=== PATIENT | female | born 1970 | race Caucasian/White ===

== ENCOUNTER 2017-03-16 18:10 | Emergency (ER) | payer MEDICAID ==
--- NOTE | 2017-03-16 18:50 | CPEKG ---
Heart Rate: 94 RR Interval: 638 P-R Interval: 156 QRSD Interval: 106 QT Interval: 372 QTC Interval: 466 P Advance: -87 QRS Advance: 55 T Wave Advance: 72 EKG Severity - ABNORMAL ECG - EKG Impression: ECTOPIC ATRIAL RHYTHM EKG Impression: INCOMPLETE RIGHT BUNDLE BRANCH BLOCK Electronically Signed By: Guido Blair 16-Mar-2017 20:22:30
--- NOTE | 2017-03-16 18:51 | EDPHY ---
H & P Stated Complaint: Deep,raspy cough~9 days;Sore in bronchial area Time Seen by Provider: 03/16/17 18:50 HPI/ROS: CHIEF COMPLAINT: Fever, cough HISTORY OF PRESENT ILLNESS: The patient presents to the ED with a one-week history of fever and productive cough. The patient states that her younger daughter was sick with a similar symptom earlier in the week. The patient denies any pleuritic chest pain, asymmetric calf pain or swelling or history of exertional chest pain. The patient does have a history of chronic back pain. The patient also has a history of a cardiac ablation. The patient denies any abdominal pain, nausea, vomiting or diarrhea. REVIEW OF SYSTEMS: A comprehensive 10 point review of systems is otherwise negative aside from elements mentioned in the history of present illness. Source: Patient Exam Limitations: No limitations - Personal History LMP (Females 10-55): Post Menopausal Current Tetanus Diphtheria and Acellular Pertussis (TDAP): Yes - Medical/Surgical History Hx Cardiac Disease: Yes Other PMH: thyroid. "Long QT". osteopenia. chronic pain - Social History Smoking Status: Current every day smoker - Physical Exam Exam: General Appearance: Alert, no distress Eyes: Pupils equal and round no pallor or injection ENT, Mouth: Mucous membranes moist Respiratory: There are no retractions, lungs are clear to auscultation Cardiovascular: Regular rate and rhythm Gastrointestinal: Abdomen is soft and nontender, no masses, bowel sounds normal Neurological: A&O, normal motor function, normal sensory exam, normal cranial nerves Skin: Warm and dry, no rashes Musculoskeletal: Neck is supple nontender Extremities: symmetrical, full range of motion Constitutional: Initial Vital Signs Temperature (C) 36.7 C 03/16/17 18:22 Respiratory Rate 18 03/16/17 18:22 Blood Pressure 118/86 H 03/16/17 18:22 O2 Sat (%) 96 03/16/17 18:22 O2 Delivery Mode Room Air Allergies/Adverse Reactions: No Known Allergies Allergy (Unverified 03/16/17 18:25) Home Medications: Medication Instructions Recorded ALPRAZolam [Xanax 1 MG (*)] 1 mg PO 03/16/17 AZITHROMYCIN [Z-PACK] 250 mg PO DAILY #1 packet 03/16/17 Albuterol [Ventolin Hfa Inhaler] 2 puffs IH QID PRN #1 mdi 03/16/17 Hydrocodone/APAP 5/325 [[place] 1 each PO 03/16/17 5/325 (*)] Metoprolol Succinate Xr [Toprol Xl 25 mg PO DAILY 03/16/17 25 mg (*)] Thyroid Med 03/16/17 predniSONE [prednisone 20mg (RX)] 3 tab PO DAILY #9 tab 03/16/17 Medical Decision Making - Diagnostics EKG Interpretation: EKG: Complete interpretation has been separately recorded in the [employer] archive. Summary impression: Sinus rhythm, rate 94, incomplete right bundle branch block, nonspecific ST changes noted Imaging Results: Chest x-ray PA lateral: Negative for acute pneumonia. Images reviewed by myself. ED Course/Re-evaluation: The patient presents to the ED with symptoms consistent with an infectious bronchitis. The patient's chest x-ray demonstrates no evidence of an acute pneumonia. The patient's EKG demonstrates an incomplete right bundle branch block which is unchanged from her EKG report in 2015 from the [facility]. The patient did receive a DuoNeb in the emergency department. She will be discharged home with a prescription for albuterol and a short course of prednisone. She has been instructed to return to the ED for markedly worsening symptoms or other concerns. The patient was kept on a insurance verification rep without any evidence of arrhythmia. I re-evaluated the patient at 8:30 p.m.. She is feeling better after receiving a DuoNeb. She continues to have stable vital signs. I have reviewed with her her diagnosis, aftercare instructions and return precautions. Differential Diagnosis: Differential diagnosis considered includes asthma, bronchitis, pneumonia, pneumothorax - Data Points Medications Given: Discontinued Medications Albuterol/Ipratropium (Duoneb) 3 ml EDNOW ONE Stop: 03/16/17 19:14 Last Admin: 03/16/17 19:17 Dose: 3 ml Departure - Departure Disposition: Home, Routine, Self-Care Clinical Impression: Acute bronchitis Condition: Good Instructions: Acute Bronchitis (ED) Additional Instructions: 1. Use albuterol inhaler up to every 4 hours as needed for cough. 2. Prednisone as directed for 3 days for cough. 3. Take antibiotics as prescribed for bronchitis. 4. Please return to the emergency department for markedly worsening symptoms, difficulty breathing or other concerns. Referrals: NONE *PRIMARY CARE P,. [Primary Care Provider] - As per Instructions
[2017-03-16] MEDS ORDERED: IPRATROPIUM/ALBUTEROL 3 ML DEYVIAL IH ONE (19:13)
[2017-03-16 19:53] VITALS: TEMP 98.2
[2017-03-16 20:42] VITALS: BP 118/70; PULSE 100; RESP 16; O2SAT 94
== END 2017-03-16 20:40 | disposition home or self-care (01) ==
DX: J20.9 Acute bronchitis, unspecified (principal); F17.200 Nicotine dependence, unspecified, uncomplicated

== ENCOUNTER 2017-09-20 10:20 | Emergency (ER) | payer OTHER, MEDICAID ==
[2017-09-20 10:38] VITALS: O2SAT 94
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
[2017-09-20 13:18] VITALS: RESP 18
[2017-09-20] MEDS ORDERED: NICOTINE POLACRILEX 2 MG GUM B PRN (13:23)
[2017-09-20 14:29] VITALS: BP 105/78; PULSE 78; TEMP 98.2
== END 2017-09-20 14:29 | disposition home or self-care (01) ==
DX: S16.1XXA Strain of muscle, fascia and tendon at neck level, initial encounter (principal); F17.200 Nicotine dependence, unspecified, uncomplicated; V49.40XA Driver injured in collision with unspecified motor vehicles in traffic accident, initial encounter; Y92.410 Unspecified street and highway as the place of occurrence of the external cause; Y99.8 Other external cause status; Y93.89 Activity, other specified

== ENCOUNTER → 2017-10-20 | Outpatient (CLI) | payer MEDICAID | LOC: FIMAGING 15:14 | PROVIDERS: ATTEND Family Medicine | DX: N63.20 Unspecified lump in the left breast, unspecified quadrant (principal); R92.0 Mammographic microcalcification found on diagnostic imaging of breast; R92.8 Other abnormal and inconclusive findings on diagnostic imaging of breast ==

== ENCOUNTER → 2017-11-03 | Outpatient (CLI) | payer MEDICAID | LOC: FIMAGING 14:03 | PROVIDERS: ATTEND Family Medicine | DX: N63.10 Unspecified lump in the right breast, unspecified quadrant (principal); N64.59 Other signs and symptoms in breast ==

== ENCOUNTER → 2017-11-09 | Outpatient (CLI) | payer MEDICAID ==
[~2017-11-09] MED LIST: BUPIVACAINE 0.5% 30 ML SDV ONE; LIDOCAINE 1% 300 MG/30 ML SDV ONE
== END ==
LOC: FIMAGING 07:19
PROVIDERS: ATTEND Family Medicine
PROC: 0HBT3ZX Excision of Right Breast, Percutaneous Approach, Diagnostic (ICD-10-PCS; principal; 2017-11-09)
DX: D05.11 Intraductal carcinoma in situ of right breast (principal)

== ENCOUNTER 2017-12-26 07:20 | Day surgery (SDC) | payer MEDICAID ==
[2017-12-26] MEDS ORDERED: BACITRACIN ZINC 14.2 GM OINTTUBE TP ONE ×2 (07:28→09:12)
[2017-12-26] MEDS ORDERED: LIDOCAINE 1% 300 MG/30 ML SDV ONE ×2 (07:28→09:12)
[2017-12-26] MEDS ORDERED: BUPIVACAINE 0.25% 30 ML SDV ONE ×2 (07:29→09:12)
[2017-12-26] MEDS ORDERED: EPINEPHrine 1 MG/ML INJ ONE (07:29)
[2017-12-26] MEDS ORDERED: GENTAMICIN SULFATE 80 MG/2 ML VIAL ONE (07:29)
[2017-12-26] MEDS ORDERED: BACITRACIN 50,000 UNITS/10 ML SYR IRR ONE ×2 (07:30→09:12)
[2017-12-26] MEDS ORDERED: ceFAZolin 1 GM VIAL ONE (07:30)
[2017-12-26] MEDS ORDERED: LR 1,000 ML IV ONE (07:52)
[2017-12-26] MEDS ORDERED: METHYLENE BLUE 0.5% 50 MG/10 ML AMP ONE (09:12)
--- NOTE | 2017-12-26 09:17 | PDANEPAE ---
ANE History of Present Illness 47 yo female with R breast mass. ANE Past Medical History - Cardiovascular History Hx Hypertension: No Hx Arrhythmias: Yes Hx Chest Pain: No Hx Coronary Artery / Peripheral Vascular Disease: No Hx CHF / Valvular Disease: No Hx Palpitations: No Cardiovascular History Comment: ablation for SVT 06/15. ? long QT syndrome - had a syncopal epidose 2 years ago - Pulmonary History Hx COPD: No Hx Asthma/Reactive Airway Disease: No Hx Recent Upper Respiratory Infection: No Hx Oxygen in Use at Home: No Hx Sleep Apnea: No Sleep Apnea Screening Result - Last Documented: Negative Pulmonary History Comment: smokes cigarettes and marijuana - Neurologic History Hx Cerebrovascular Accident: No Hx Seizures: No Hx Dementia: No - Endocrine History Hx Diabetes: No Hypothyroid: No Hyperthyroid: Yes Obesity: no Endocrine History Comment: graves disease - Renal History Hx Renal Disorders: No - Liver History Hx Hepatic Disorders: No - Neurological & Psychiatric Hx Hx Neurological and Psychiatric Disorders: Yes Neurological / Psychiatric History Comment: graves disease. anxiety - Cancer History Hx Cancer: Yes Cancer History Comment: new dx breast CA - Congenital Disorder History Hx Congenital Disorders: Yes Congenital History Comment: thyroid problems. heart disease. anemia - GI History GERD: no Hx Gastrointestinal Disorders: No - Other Health History Other Health History: top plate denture. anemia - Chronic Pain History Chronic Pain: Yes (lower back,bilat hips, neck) - Surgical History Prior Surgeries: ablation for SVT 06/20/06. cervical discectomy 2010. scoiliosis sx ANE Review of Systems Review of Systems: - Exercise capacity METS (RN): 4 METS - Systems Constitutional: Reports: no symptoms Cardiac: Reports: no symptoms Respiratory: Reports: no symptoms ANE Patient History - Allergies Allergies/Adverse Reactions: No Known Allergies Allergy (Verified 12/23/17 10:36) - Home Medications Home Medications: ALPRAZolam [Xanax 1 MG (*)] 03/16/17 [Last Taken 1 Day Ago ~12/25/17] Hydrocodone/APAP 5/325 [[place] 5/325 (*)] 03/16/17 [Last Taken 1 Day Ago ~] Methimazole 12/23/17 [Last Taken 1 Day Ago ~12/25/17] - NPO status NPO Since - Liquids (Date): 12/26/17 NPO Since - Liquids (Time): 00:00 NPO Since - Solids (Date): 12/25/17 NPO Since - Solids (Time): 19:00 - Anes Hx Anes Hx: post operative nausea and vomiting - Smoking Hx Smoking Status: Heavy smoker (trying to quit, down to 3 cigarettes/day, vapping as well) Marijuana use: Yes - Alcohol Use Alcohol Use: Rarely - Family Anes Hx Family Anes Hx: neg - N/A Family Hx Anesthesia Complications: NONE ANE Labs/Vital Signs - Vital Signs Blood Pressure: 99/71 Heart Rate: 64 Respiratory Rate: 18 O2 Sat (%): 95 Height: 172.72 cm Weight: 47.627 kg ANE Physical Exam - Airway Neck exam: FROM Mallampati Score: Class 2 Mouth exam: dentures (upper plate) - Pulmonary Pulmonary: clear to auscultation - Cardiovascular Cardiovascular: regular rate and rhythym - ASA Status ASA Status: III ANE Anesthesia Plan Anesthesia Plan: GA w LMA
[2017-12-26] MEDS ORDERED: fentaNYL 100 MCG/2 ML INJ ONE (09:26)
--- NOTE | 2017-12-26 09:29 | PDHPUP ---
History & Physical Update H&P update statement: This history and physical update is based on an assessment of the patient which was completed after admission or registration (within 24 hours), but prior to the surgery/procedure. H&P update: H&P reviewed & patient examined, no change in patient's condition since H&P completed
[2017-12-26] MEDS ORDERED: BUPIVACAINE 0.5% 10 ML SDV NB ONE (09:32)
[2017-12-26] MEDS ORDERED: DIAZEPAM 5 MG TAB PO ONE (09:33)
[2017-12-26] MEDS ORDERED: LIDOCAINE 2% 5 ML SDV ONE (09:54)
[2017-12-26] MEDS ORDERED: DEXAMETHASONE 4 MG/ML VIAL ONE (09:54)
[2017-12-26] MEDS ORDERED: PROPOFOL/EMULSION 500 MG/50 ML BOTTLE IV ONE (09:54)
--- NOTE | 2017-12-26 10:10 | POSTANESTH ---
Post Anesthetic Evaluation Cardiovascular Status: Normal, Stable Respiratory Status: Normal, Stable Level of Consciousness/Mental Status: Can Participate in Eval, Alert and Oriented Pain Control: Adequate, Prn Tx Ordered Nausea/Vomiting Control: Adequate, Prn Tx Ordered Complications Possibly Related to Anesthesia: None Noted
[2017-12-26] MEDS ORDERED: HYDROCODONE/APAP 5/325 TAB PO PRN (11:07)
[2017-12-26] MEDS ORDERED: ACETAMINOPHEN 500 MG TAB PO PRN (11:07)
[2017-12-26] MEDS ORDERED: NALOXONE HCL 0.4 MG/ML INJ IVP PRN (11:07)
[2017-12-26] MEDS ORDERED: LR 500 ML IV PRN (11:07)
[2017-12-26] MEDS ORDERED: fentaNYL 100 MCG/2 ML INJ IVP PRN (11:07)
[2017-12-26] MEDS ORDERED: PROMETHAZINE HCL 25 MG/ML INJ IVP PRN (11:07)
[2017-12-26] MEDS ORDERED: IPRATROPIUM/ALBUTEROL 3 ML DEYVIAL IH PRN (11:12)
--- NOTE | 2017-12-26 11:48 | POSTOPPROG ---
Post Op Note Date of Operation: 12/26/17 Surgeon: Juan Peter Greens Picker: none Anesthesiologist: Christie Anesthesia: LMA, Other (Specify) (regional block) Pre-op Diagnosis: right breast ca Post-op Diagnosis: same Procedure: lumpectomy SLN Bx Findings: Large SLN deep anterior axilla Inf/Abcess present in the surg proc area at time of surgery?: No Depth: Deep Incisional (Fascial) EBL: Minimal Complications: none Specimen(s): short stitch superior long stitch lateral right breast tissue (upper outer quadrant)
--- NOTE | 2017-12-26 12:23 | GOP ---
[f rep st] OPERATIVE REPORT DATE OF OPERATION: SURGEON: Juan Peter MD COTTON AGENT: None. ANESTHESIA: General LMA anesthesia was used. ANESTHESIOLOGIST: Dr. Hamida Christie. PREOPERATIVE DIAGNOSIS: Right breast cancer. POSTOPERATIVE DIAGNOSIS: Right breast cancer. PROCEDURE PERFORMED: Partial mastectomy with sentinel lymph node biopsy. FINDINGS: SPECIMENS: Right breast tissue, long stitch lateral, short stitch. Permanent pathology and sentinel node for permanent pathology. This node was both hot and somewhat atypical. ESTIMATED BLOOD LOSS: Less than 10 mL. INDICATIONS: A 47-year-old patient presents to the hospital for elective right breast lumpectomy, se ntinel lymph node biopsy with removal of right breast implant for a diagnosis of breast cancer on the right. DESCRIPTION OF PROCEDURE: The patient was brought to the operating room. After induction of IV amy tion and giving a field block, she has been identified by 2 independent variables and draping and pre pping was done in a normal sterile fashion with chlorhexidine. Time-out procedure was then proceeded according to institutional standards. Local anesthetic was infused in the skin and subcutaneous tis sues of the incision and sites, both in the axilla and the breast. An incision was made on the later al aspect of the nipple-areolar complex and taken down about 3-4 cm onto the skin and subcutaneous ti ssues. This was deepened with electrocautery and the initial idea to remove the lumpectomy specimen was preceded by 1st removing the implant to get more space to be able to more accurately assess the t issues around the implant. The implant is removed by doing a pectoral splitting incision, getting do wn to the capsule, dividing the capsule, entering the saline implant and then removing it through a s mall incision. The capsule was then scored with electrocautery and allowed to collapse. Hemostasis assured to be adequate. The capsule was then reapproximated and attention was then turned to the sam ast. The Celestino's ligaments were then divided on the upper outer quadrant to completely [employer] th e lumps that are felt in the right upper quadrant. These are completely encircled and then taken liz n to the level of the fascia using electrocautery. This was removed from the pectoral fascia without difficulty and adequate margins around the palpable lesions are taken. The area was assured to be h emostatic and short stitch was marked for superior and long stitch for lateral. The dissection was c arried superiorly to the axilla. The clavipectoral fascia was then divided and the axilla proper was then entered. The hot node that is identified by a sentinel node lymph scintigraphy is then removed without difficulty. Clips were placed at the base of the lymphatic tissue that was removed for poss ible radiation postoperatively and to control lymphatics. After insuring hemostasis the area was irr igated and aspirated. There was no sign of any active bleeding and any debris is removed. The space is then reapproximated at the level of the axilla and the clavipectoral fascia using 3-0 Vicryl and the skin and subcutaneous tissue are closed in a two-layered fashion using 3-0 Polysorb and 4-0 Monoc ryl. Dermabond was applied. The patient was awakened and LMA was removed. She was taken to recover y room in stable condition. No immediate complications. /[id number]/MODL
[2017-12-26 13:43] VITALS: BP 110/69
== END 2017-12-26 13:58 | disposition home or self-care (01) ==
LOC: FSGY 07:20
PROVIDERS: ATTEND Surgery
DX: D05.11 Intraductal carcinoma in situ of right breast (principal); C77.3 Secondary and unspecified malignant neoplasm of axilla and upper limb lymph nodes; F17.200 Nicotine dependence, unspecified, uncomplicated
CPT/HCPCS: 19301; 38525; A9520; J0171; J0690; J1100; J1580; J2704; J3010; Q9968

== ENCOUNTER 2018-01-23 08:50 | Day surgery (SDC) | payer MEDICAID ==
[2018-01-23] MEDS ORDERED: LR 1,000 ML IV ONE (08:53)
[2018-01-23] MEDS ORDERED: LIDOCAINE 1% 2 ML INJ ID PRN (08:53)
[2018-01-23] MEDS ORDERED: BUPIVACAINE 0.25% 30 ML SDV ONE ×2 (09:11→09:12)
[2018-01-23] MEDS ORDERED: LIDOCAINE 1% 300 MG/30 ML SDV ONE (09:12)
[2018-01-23] MEDS ORDERED: ceFAZolin 2 GM/DEXTROSE 100 ML IV ONE (09:19)
--- NOTE | 2018-01-23 09:19 | PDHPUP ---
History & Physical Update H&P update statement: This history and physical update is based on an assessment of the patient which was completed after admission or registration (within 24 hours), but prior to the surgery/procedure. H&P update: H&P reviewed & patient examined H&P changes: Postive SLN and margins. Right multifocal breast cancer. WLE and completion axlnd. Questions addresed.
[2018-01-23 09:57] LABS: PLATELET COUNT 173 10^3/uL (150-400)
--- NOTE | 2018-01-23 10:00 | PDANEPAE ---
ANE Past Medical History - Cardiovascular History Hx Hypertension: No Hx Arrhythmias: Yes Hx Chest Pain: No Hx Coronary Artery / Peripheral Vascular Disease: No Hx CHF / Valvular Disease: No Hx Palpitations: No Cardiovascular History Comment: ablation for SVT 06/15. ? long QT syndrome - had a syncopal epidose 2 years ago 2014,2016. no issues since then - Pulmonary History Hx COPD: No Hx Asthma/Reactive Airway Disease: No Hx Recent Upper Respiratory Infection: No Hx Oxygen in Use at Home: No Hx Sleep Apnea: No Sleep Apnea Screening Result - Last Documented: Negative Pulmonary History Comment: smokes cigarettes and marijuana - Neurologic History Hx Cerebrovascular Accident: No Hx Seizures: No Hx Dementia: No - Endocrine History Hx Diabetes: No Endocrine History Comment: graves disease - Renal History Hx Renal Disorders: No - Liver History Hx Hepatic Disorders: No - Neurological & Psychiatric Hx Hx Neurological and Psychiatric Disorders: Yes Neurological / Psychiatric History Comment: graves disease. anxiety - Cancer History Hx Cancer: Yes Cancer History Comment: new dx breast CA - Congenital Disorder History Hx Congenital Disorders: Yes Congenital History Comment: thyroid problems. heart disease. anemia - GI History Hx Gastrointestinal Disorders: No - Other Health History Other Health History: top plate denture. anemia. bruises easily - Chronic Pain History Chronic Pain: Yes (lower back,bilat hips, neck) - Surgical History Prior Surgeries: ablation for SVT 06/20/06. cervical discectomy 2010. scoiliosis sx. lumpectomy 12/26 ANE Review of Systems Review of Systems: - Exercise capacity METS (RN): 4 METS ANE Patient History - Allergies Allergies/Adverse Reactions: No Known Allergies Allergy (Verified 12/23/17 10:36) - Home Medications Home Medications: ALPRAZolam [Xanax 1 MG (*)] 03/16/17 [Last Taken 01/20/18] Hydrocodone/APAP 5/325 [[place] 5/325 (*)] 03/16/17 [Last Taken 01/22/18] Methimazole 12/23/17 [Last Taken 01/22/18] Metoprolol Tartrate 01/20/18 [Last Taken 01/09/18] oxyCODONE IR [Oxycodone Ir (*)] 01/20/18 [Last Taken 12/24/17] - NPO status NPO Since - Liquids (Date): 01/22/18 NPO Since - Liquids (Time): 19:00 NPO Since - Solids (Date): 01/22/18 NPO Since - Solids (Time): 19:00 - Smoking Hx Smoking Status: Heavy smoker - Family Anes Hx Family Hx Anesthesia Complications: NONE ANE Labs/Vital Signs - Labs Result Diagrams: 01/23/18 09:35 - Vital Signs Blood Pressure: 106/69 Heart Rate: 58 Respiratory Rate: 16 O2 Sat (%): 97 Height: 172.72 cm Weight: 47.627 kg ANE Physical Exam - Airway Neck exam: FROM Mallampati Score: Class 3 Mouth exam: dentures - Pulmonary Pulmonary: no respiratory distress - Cardiovascular Cardiovascular: regular rate and rhythym - ASA Status ASA Status: III ANE Anesthesia Plan Anesthesia Plan: GA w LMA
[2018-01-23] MEDS ORDERED: LIDOCAINE 2% 100 MG/5 ML SYR ONE (10:03)
[2018-01-23] MEDS ORDERED: PROPOFOL 200 MG/20 ML VIAL ONE (10:03)
[2018-01-23] MEDS ORDERED: fentaNYL 100 MCG/2 ML INJ ONE ×3 (10:03→12:11)
[2018-01-23] MEDS ORDERED: DEXAMETHASONE 4 MG/ML VIAL ONE (10:03)
[2018-01-23] MEDS ORDERED: METOCLOPRAMIDE 10 MG/2 ML VIAL ONE (10:03)
[2018-01-23] MEDS ORDERED: ONDANSETRON 4 MG/2 ML VIAL IVP PRN (11:55)
[2018-01-23] MEDS ORDERED: ALBUTEROL 3 ML DEYVIAL IH PRN (11:55)
[2018-01-23] MEDS ORDERED: NALOXONE HCL 0.4 MG/ML INJ IVP PRN (11:55)
--- NOTE | 2018-01-23 11:57 | POSTANESTH ---
Post Anesthetic Evaluation Cardiovascular Status: Similar to Pre-Op Cond Respiratory Status: Similar to Pre-op Cond. Level of Consciousness/Mental Status: Mildly Sleepy, Arousable Pain Control: Adequate, Prn Tx Ordered Nausea/Vomiting Control: Adequate, Prn Tx Ordered Complications Possibly Related to Anesthesia: None Noted
[2018-01-23] MEDS: fentaNYL 100 MCG/2 ML INJ IVP PRN ×3 (12:13→12:33)
[2018-01-23] MEDS ORDERED: oxyCODONE IR 5 MG TAB PO PRN (12:39)
--- NOTE | 2018-01-23 12:41 | POSTOPPROG ---
Post Op Note Date of Operation: 01/23/18 Surgeon: Juan Peter Torpedo Man: none Anesthesiologist: Afshin Anesthesia: LMA Pre-op Diagnosis: Breast cancer positive snl Post-op Diagnosis: same Indication: completion axlnd, partial mastectomy right Procedure: completion axlnd, partial mastectomy right Inf/Abcess present in the surg proc area at time of surgery?: No EBL: Minimal Drains: Shravan Quevedo Specimen(s): re-excised biopsy cavity. additional margins
[2018-01-23] MEDS ORDERED: HYDROCODONE/APAP 5/325 TAB PO PRN (12:45)
[2018-01-23] MEDS ORDERED: oxyCODONE IR 5 MG TAB ONE (12:58)
[2018-01-23 14:22] VITALS: BP 130/77
--- NOTE | 2018-01-23 16:53 | GOP ---
[f rep st] OPERATIVE REPORT DATE OF OPERATION: 01/23/2018 SURGEON: Juan Peter MD ANESTHESIA: General LMA anesthesia and local anesthesia were used. ANESTHESIOLOGIST: Dr. Pepe. PREOPERATIVE DIAGNOSIS: Breast cancer. POSTOPERATIVE DIAGNOSIS: Breast cancer. PROCEDURE PERFORMED: Partial mastectomy with axillary node dissection completion. FINDINGS: SPECIMENS: Re-excisional biopsy cavity, additional margins as specified. DESCRIPTION OF PROCEDURE: The patient was brought to the operating room. After induction of LMA ane sthesia, general, her chest, breast, and axilla were prepped with chlorhexidine and draped sterilely. Time-out procedure was then performed according to institutional standards. Local anesthetic was infused in skin, subcutaneous tissues, and the incision was then made in the julee es of [place] of the bottom of the axilla, deepened with electrocautery. Care was taken to avoid the long thoracic nerve, as well as the thoracodorsal nerve and artery, which were intact at the end of the case. The crossing nerve to the arm is also preserved and nerve strip sparing technique is do ne. The axillary artery and vein are identified in the upper part of the incision and the lymphatic tissue was then removed from the base of the vein and the entire axillary contents were removed and s ent for complete pathologic analysis as a permanent. Hemostasis was assured. The attention was then turned to the previous excision biopsy cavity that has access to the arm. Thi s area was exposed and the biopsy cavity is excised, taken out the anterior, lateral, and posterior a spects, which had been positive by biopsy, and essentially, a partial mastectomy was done from the ax illa, including the upper part of the pectoral fascia, which was a posterior margin medially towards the mid part of the breast at 12 o'clock, laterally to the 9 o'clock position and circumferential dis section and excision of this tissue was done. Additional margins were given. The patient then had hemostasis. A drain was placed from the lower aspect of the incision and secure d using 3-0 nylon. The area was irrigated and aspirated for all fat debris and the incision was clos ed in layers using 3-0 Polysorb and 4-0 Vicryl. Dermabond was applied. The patient was awakened, LM A removed, taken to recovery room in stable condition. No immediate complications. COMPLICATIONS: There were no complications. DRAINS: A Shravan-Quevedo in the right axilla. /[id number]/MODL
== END 2018-01-23 14:24 | disposition home or self-care (01) ==
LOC: FSGY 08:50
PROVIDERS: ATTEND Surgery
PROC: 07T50ZZ Resection of Right Axillary Lymphatic, Open Approach (ICD-10-PCS; principal; 2018-01-23 10:00)
PROC: 0HBT0ZZ Excision of Right Breast, Open Approach (ICD-10-PCS; principal; 2018-01-23 10:00)
DX: C50.411 Malignant neoplasm of upper-outer quadrant of right female breast (principal); C77.3 Secondary and unspecified malignant neoplasm of axilla and upper limb lymph nodes
CPT/HCPCS: J0690; J1100; J2001; J2270; J2704; J2765; J3010